=== PATIENT | male | born 1935 | race Caucasian/White ===

== ENCOUNTER → 2017-01-09 | Day surgery (SDC) | payer MEDICARE, BC ==
--- NOTE | 2017-01-08 19:36 | MH ---
cc: SUMI SAEZ DMD DATE OF ADMISSION 01/09/2017 HISTORY OF THE PRESENT ILLNESS Mr. 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 It went all the way down to the floor of the vestibule on the right side. The procedure was done on February 06, 2016 here at [facility]. All the margins were clear as per the report and as per the frozen and the permanent main specimens. The patient presented to my office on recurrent followup subsequently and last month indicated he had a little soreness on the right side. He did have some sharp teeth on the right side which was smoothed down by his dentist but this lesion never went away. The lesion is 1 cm x 0.5 cm. 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 Did discuss with his pathologist Dr. Askew at [facility] who advises removal of the whole lesion in its entirety. Given the patient's previous multiple histories of carcinoma including one on his back melanoma which was there, and his oral cancer, it is necessary that we go and remove this lesion right lateral border of the tongue squamous cell carcinoma with frozens. This is a T1 N0 M0 squamous cell carcinoma recurrence right lateral border of the tongue. So previously invasive. The patient was cleared by his physician, Dr. Joyce at the [facility]. Benefits, risks, indications of the procedure, the procedure in detail and the options of no treatment including alternans were discussed with this patient. Risks not limited to any postop pain, infection, bleeding, damage to the adjacent soft tissue, hard tissue, anesthesia complications. All questions and concerns were addressed. The patient aware that any further recurrence may require more surgery. PAST MEDICAL HISTORY 1. Anaphylactic shock, reason unknown. 2. Sleep apnea. 3. Asthma. 4. Coronary artery disease of [place] coronaries. 5. Chronic obstructive pulmonary disease. 6. Bilateral hearing loss. 7. Pacemaker, which is Medtronic. 8. Hypothyroidism. 9. Type 2 diabetes mellitus. 10. History of syncope. 11. Ventricular tachycardia, paroxysmal. 12. He has a history of blockage of the left part of his heart. PAST SURGICAL HISTORY 1. Tracheostomy April 29, 2014. 2. Melanoma removed from the left shoulder 2013. 3. Pacemaker 2008. 4. Biopsy of the right lower lip 2012 and 2016. 5. Biopsy of the right tongue 2016. 6. Fast excision of that lesion and reconstruction on the right tongue 2016. That was squamous cell carcinoma. Previous anesthesia problems denied. Growth and development normal. Infectious disease denied. Autoimmune disorders denied. ALLERGIES FLOMAX. MEDICATIONS 1. [place] Thyroid 60 milligrams. 2. Aspirin 81 milligrams, delayed release . 3. Atorvastatin 10 milligrams. 4. Metoprolol tartrate 25 milligrams. 5. Nitroglycerine 0.4 milligrams sublingual tablet. 6. Rapaflo 8 milligrams oral capsule. 7. Centrum Silver. 8. Vitamin B12. 9. Glucophage 1000 milligrams oral tablet. 10. Metformin. FAMILY HISTORY Mother at age 88 secondary to cardiac disorder. Father at age of 82 due to prostate cancer. Occupation, retired. SOCIAL HISTORY Tobacco smoking, quit smoking about one year ago but now he started occasionally. Eating well. Alcohol occasionally. Home status lives with his . Sleeping well. Denies any drug use. REVIEW OF SYSTEMS GENERAL: Weight 238 pounds, height 5 feet 8 inches. Weight tendencies no increase or decreasing. HEAD: Denies any headache, dizziness, any injury or any seizures. EYES: Denies any visual problems, any double vision and tearing or blind spots. Does wear reading glasses. NOSE: Chronic runny nose especially in the morning. Denies any bleeding, obstruction, any discharges. MOUTH: Having some soreness on the right side of the mouth. Denies any bleeding or any dentures. Squamous cell carcinoma right tongue, lateral tongue border. THROAT: Reports some hoarseness secondary to the past tracheostomy April 29, 2014. Unknown cause of swelling of his tongue. Denies any soreness any thyroid disease. He has some hoarseness secondary to the tracheostomy. LYMPH NODE: Denies any local, any glandular enlargement. RESPIRATORY: Denies any TB, shortness of breath, any cough. Denies any asthma. History of COPD. History of sleep apnea and wears a C-PAP. CARDIOVASCULAR: Denies any pericardial pain. Denies any hypo or hypertension. Denies murmurs. Denies any shortness of breath on excertion. Denies edema. Denies any phlebitis. Denies rheumatic fever. He has got a pacemaker history, the blockage of the low part of the heart. Pacemaker placed in 2008. GASTROINTESTINAL: Denies any gallbladder, any irritable bowel syndrome, any peptic ulcer disease. GENITOURINARY: Denies any urinary tract infection, any kidney disease, any renal disease. MUSCULOSKELETAL: He has some pain on the left side secondary to torn rotator cuff. Denies any limitation of movement, any muscular weakness. ENDOCRINE: History of diabetes mellitus. Has type 2 diabetes mellitus, takes metformin. Denies any hormone therapy, any growth disturbance. HEMATOLOGIC: Denies any anemia, bleeding tendencies or any Rh incompatibility. NEUROLOGICAL: Denies any motor or any sensory disturbances. PHYSICAL EXAMINATION VITAL SIGNS: Pulse is 61, blood pressure is 113/89, oxygen saturation 96%. . GENERAL: He is alert, awake and oriented x3, well-groomed male in no acute distress. HEENT: Head is normocephalic. History of wearing hearing aids. EYES: Pupils equal round react to light and accommodation. Extraocular motion intact. Nose is symmetrical. Airway is patent. MOUTH: Lesion is noted on the right lateral border of the tongue, has erythema sounded by a whitish area. It was diagnosed at superficially invasive squamous cell carcinoma a few weeks ago. It is T1 N0 M0 lesion. There is no elevation of the floor of the mouth or the tongue. Tissues are pink and well-perfused. NECK: Positive range of movement. CARDIOVASCULAR: Regular rate and rhythm. ABDOMEN: Nontender, nondistended, soft. GASTROINTESTINAL: Positive bowel sounds. EXTREMITIES: Positive range of movement upper and lower extremities. NEUROLOGICAL: Cranial nerves II through XII grossly intact. IMPRESSION AND PLAN An 81-year-old male with T1 N0 M0 squamous cell carcinoma superficially invasive right lateral border of the tongue measuring 1.0 cm x 0.5 cm. It is reddish area with a little white areas around it. We will plan for excision of this whole lesion with frozen specimens and local advancement closure. Benefits, risks, indications of the procedure in detail and the options no treatment were all discussed with this patient already. All questions and concerns were addressed. Sumi Saez DMD RRT/AMIE /5:49 PM /6:52 PM [email or web address]
[~2017-01-09] VITALS: Ht 172.7 cm; Wt 108.4 kg
[~2017-01-09] MED LIST: ACETAMINOPHEN 1000 MG/100 ML VIAL IV ONE; ARMO60TA PO; ASPI1TAB69 PO; ATOR10TA15 PO; BUPIVACAINE/EPINEPHRINE 0.25% PF 30 ML VIAL ONE; CENTTAB PO; CHLORHEXIDINE GLUCONATE 0.12% 30 ML CUP ONE; CYAN1TAB24 PO; DEXAMETHASONE SOD PHOS 20 MG/5 ML VIAL ONE; INSULIN HUMAN REGULAR 1,000 UNITS/10 ML VIAL SQ PRN; ISOS30TA3 PO; LACTATED RINGER'S 1000 ML IV SCH; LIDOCAINE 1%/EPINEPHrine 1:100,000 SOLN 30 ML VIAL ONE; METF1000 PO; METO25TA3 PO; METOPROLOL TARTRATE 25 MG TAB PO PRN; MIDAZOLAM HCL 2 MG/2 ML VIAL ONE; NEOSTIGMINE 3 MG/3 ML SYR IV ONE; NITR1SUB3 SL; ONDANSETRON HCL 4 MG/2 ML VIAL IV PUSH ONE; PHENYLEPH/NS 1000 MCG/10 ML SYR IV ONE; PROPOFOL 200 MG/20 ML AMP IV ONE; RAPA8CAP PO; SODIUM CHLORID 0.9% 500 ML IV SCH; VITA10007 PO; VITA20003 PO; ceFAZolin 1,000 MG/NS 100 ML IV SCH; fentaNYL CITRATE 250 MCG/5 ML AMP ONE; methylPREDNISolone SOD SUCC 125 MG/2 ML VIAL ONE
[2017-01-09 12:24] VITALS: BP 123/69; PULSE 61; RESP 18; TEMP 98.2; O2SAT 96
[2017-01-09 12:28] LABS: AUTOMATED NEUTROPHIL # 5.8 TH/MM3 (1.8-7.7); BASOPHIL # 0.1 TH/MM3 (0-0.2); BASOPHIL % 0.7 % (0.0-2.0); EOSINOPHIL # 0.1 TH/MM3 (0-0.4); EOSINOPHIL % 1.4 % (0.0-4.0); HEMO FLAGS DIFF FINAL; LYMPH % 29.1 % (9.0-44.0); LYMPHOCYTE # 2.8 TH/MM3 (1.0-4.8); MEAN CELL VOLUME 93.7 FL (80.0-100.0); MEAN CORPUSCULAR HEMOGLOBIN 31.7 PG (27.0-34.0); MEAN CORPUSCULAR HGB CONC 33.8 % (32.0-36.0); MONO % 9.4 % (0.0-8.0); NEUT % 59.4 % (16.0-70.0); PLATELET COUNT 157 TH/MM3 (150-450); RED BLOOD COUNT 4.92 MIL/MM3 (4.50-5.90); RED CELL DISTRIBUTION WIDTH 14.6 % (11.6-17.2); WHITE BLOOD COUNT 9.8 TH/MM3 (4.0-11.0)
--- NOTE | 2017-01-09 13:11 | RADRPT ---
EXAM DATE/TIME: 01/09/2017 12:29 [facility] COMPARISON: CHEST SINGLE AP, November 14, 2014, 3:22. INDICATIONS : Evaluate for pneumonia, pneumothorax, or communicable disease. Pre op for lip surgery. MEDICAL HISTORY : Chronic obstructive pulmonary disease. SURGICAL HISTORY : None. ENCOUNTER: Initial ACUITY: 1 day PAIN SCORE: 0/10 LOCATION: Bilateral chest FINDINGS: 2 portable frontal views of the chest show the lungs to be clear. Heart is normal in size. Pacing dev ice overlies the left chest. Bony structures are unremarkable. CONCLUSION: No acute disease. Bronson Simpson Jr., MD on January 09, 2017 at 13:10 Board Certified Radiologist. This report was verified electronically.
--- NOTE | 2017-01-09 15:00 | HHI.PR ---
Immediate Post Op Note Procedure Date: Jan 09, 2017 Pre Op Diagnosis: superficially invasive squamous cell carcinoma right lateral tongue [id number] Post Op Diagnosis: alondra Surgeon: Rolando Serrano Wheel Assembler(s): orly yanez Procedure: excision of scca right lateral tongue with local advancement reconstruction Complications: none Specimen(s) removed: permanent specimen/lesion right lateral tongue frozen sections x 5 Estimated blood loss: minimal Anesthesia: General, Local (2%lidocaine with 1:100,000 epi x 6 cc; 0.5marcaine with 1:200,000 epi x 3 cc) Drains: None Patient to: PACU Patient Condition: Good Date/Time of Procedure: SEE SURGICAL CARE RECORD Rolando Serrano DMD Jan 09, 2017 15:00
[2017-01-09 16:56] VITALS: BP 142/75; PULSE 71; RESP 20; TEMP 96.3; O2SAT 100
--- NOTE | 2017-01-10 12:58 | EKG ---
Date Performed: 01/09/2017 Time Performed: 12:27:40 PTAGE: 81 years EKG: ELECTRONIC ATRIAL PACEMAKER ELECTRONIC VENTRICULAR PACEMAKER ABNORMAL RHYTHM ECG PREVIOUS TRACING : 02/06/2016 13.07 Since previous tracing, no significant change noted DOCTOR: Adi Rodríguez Interpretating Date/Time 01/10/2017 12:56:05
--- NOTE | 2017-01-10 13:33 | MP ---
cc: ROLANDO SERRANO DMD DATE OF SURGERY: 01/09/2017 PREOPERATIVE DIAGNOSIS: Superficially invasive squamous cell carcinoma right lateral tongue, T1 N0 M0 lesion. POSTOPERATIVE DIAGNOSIS: Superficially invasive squamous cell carcinoma right lateral tongue, T1 N0 M0 lesion. OPERATIVE PROCEDURE PERFORMED: Excision of squamous cell carcinoma right lateral tongue with local advancement reconstruction. SURGEON: Rolando Serrano DMD. CYCLE COUNTER: [place]. ANESTHESIA: General also 2% lidocaine with 1:1000 epinephrine approximately 6 mL also 0.5% Marcaine with 1:200,000 epinephrine approximately 3 mL given at the end of the case. COMPLICATIONS: None. SPECIMENS: Permanent specimen /lesion of the right lateral tongue also frozen sections x5. ESTIMATED BLOOD LOSS: Minimal. DISPOSITION: The patient tolerated the procedure well and was extubated and taken to the post-anesthesia care unit. INDICATIONS FOR THE PROCEDURE: This is an 81-year-old male with a longstanding history of multiple areas of lesions including squamous cell carcinoma of his lip and tongue. Upon continuous follow up visits, the patient indication about a month ago that he had a soreness on the right lateral border of the tongue. I did an incisional biopsy which came back as superficially invasive squamous cell carcinoma. It is now necessary that we excise this lesion its this entirety with frozen sections and do an advancement reconstruction to close the defect. The pathologist also advised to resect the rest of this remaining lesion. He was medically cleared for the procedure. EKGs and chest x-rays were all taken prior to the procedure including labs and all were reviewed perioperatively. Benefits, risks and indication of the procedure, the procedure in detail and the options of no treatment were all discussed with this patient. The risks are not limited to any postop pain, infection, bleeding, damage to adjacent soft tissue, hard tissue anesthesia complications, recurrence of the lesion, further surgeries as required. All questions and concerns were addressed. Consent was signed and is in the chart. DESCRIPTION OF THE PROCEDURE IN DETAIL: The patient was met once again perioperatively. Past medical history review was reviewed and updated and no changes noted. At this time, the right side of the face was now marked. The patient was taken to operating suite #10 and put on the table in the supine position. He underwent oral intubation with a glide scope. The eyes were taped shut and all pressure points were padded. Betadine prep was done of his mouth and his lips. At this time, a time-out was taken to identify the patient, the site, the procedure, the surgeon and all were in agreement. I went to sink to scrub and came back to wear the sterile attire. The patient was draped in normal sterile fashion. The bite block was gently placed on the left side of the mouth. The back of the throat was suctioned. A moistened Ray-Chandni used as a throat pack. The mouth was irrigated with Peridex solution. 2% lidocaine with 1:100,000 epinephrine injected gently on the anterior tip. 2-0 silk suture was used to pull the tongue out of the mouth. The lesion was identified on the right lateral border of the tongue. I used a marking pen to mirna all around the tongue on the right side. Once this was done, a 2% lidocaine with 1:100,000 epinephrine was injected over the right side lateral tongue where the lesion was. A 15 blade was used to excise this lesion in an elliptical manner. Then once the lesion was taken out, it was marked with 2-0 silk suture at twelve o'clock with two long sutures, three o'clock a short suture, six o'clock one long suture and the nine o'clock position had no suture. Frozen sections were now taken superiorly going from the posterior to the anterior region with the same thing on the inferior region and three deep specimens were taken: Deep anterior, deep middle and deep posterior. I just spoke to the pathologist and all margins for frozen sections were all clear of any lesion. Once this was done, the site was once again irrigated with Peridex solution. Bipolar was used to cauterize any bleeders. 3-0 Vicryl was used to close the deep layers with undermining of the tissues on all the borders of the soft tissue to help advance this closure. Finally on the outside, the lateral border of the tongue was closed with 3-0 Vicryl sutures in a horizontal mattress. 0.5% Marcaine with 1:200,000 epinephrine was injected in the right lateral border the tongue. Prior to that, Marcaine was also injected in the right side inferior alveolar nerve block. The silk suture was removed. The back of the mouth was suctioned. The throat pack was removed. The bite block was removed. The patient tolerated the procedure well. No complications noted. All sponge and needle counts were all accounted for. Rolando Serrano DMD RRT/MARC /2:50 PM /1:20 PM LAEH
== END | disposition home or self-care (01) ==
LOC: HSDC 10:58
PROVIDERS: ATTEND Dentist Oral and Maxillofacial Surgery
DX: C02.1 Malignant neoplasm of border of tongue (principal); J44.9 Chronic obstructive pulmonary disease, unspecified; R94.31 Abnormal electrocardiogram [ECG] [EKG]
CPT/HCPCS: 00170; 41120; 71010; 85025; 88305; 88331; 93005; J0690; J2250; J2370; J2405; J2710; J2930; J3010; J7120; J0131; J1100

== ENCOUNTER 2017-01-30 13:52 | Inpatient (IN) | payer MEDICARE, BC ==
[~2017-01-30] VITALS: Ht 172.7 cm; Wt 80.0 kg
[~2017-01-30 13:52] MED LIST changes: -ACETAMINOPHEN 1000 MG/100 ML VIAL IV ONE; -BUPIVACAINE/EPINEPHRINE 0.25% PF 30 ML VIAL ONE; -CHLORHEXIDINE GLUCONATE 0.12% 30 ML CUP ONE; -DEXAMETHASONE SOD PHOS 20 MG/5 ML VIAL ONE; -INSULIN HUMAN REGULAR 1,000 UNITS/10 ML VIAL SQ PRN; -ISOS30TA3 PO; -LACTATED RINGER'S 1000 ML IV SCH; -LIDOCAINE 1%/EPINEPHrine 1:100,000 SOLN 30 ML VIAL ONE; -METOPROLOL TARTRATE 25 MG TAB PO PRN; -MIDAZOLAM HCL 2 MG/2 ML VIAL ONE; -NEOSTIGMINE 3 MG/3 ML SYR IV ONE; -ONDANSETRON HCL 4 MG/2 ML VIAL IV PUSH ONE; -PHENYLEPH/NS 1000 MCG/10 ML SYR IV ONE; -PROPOFOL 200 MG/20 ML AMP IV ONE; -SODIUM CHLORID 0.9% 500 ML IV SCH; -ceFAZolin 1,000 MG/NS 100 ML IV SCH; -fentaNYL CITRATE 250 MCG/5 ML AMP ONE; -methylPREDNISolone SOD SUCC 125 MG/2 ML VIAL ONE
[2017-01-30 14:03] VITALS: BP 146/68; PULSE 88; RESP 17; TEMP 98.1; O2SAT 98
[2017-01-30 16:11] VITALS: O2SAT 95
--- NOTE | 2017-01-30 16:22 | PD ---
HPI Chief Complaint: Chest Pain Time Seen by Provider: 16:22 Travel History International Travel<30 days: No Contact w/Intl Traveler<30days: No Traveled to known affect area: No History of Present Illness HPI 81-year-old male came to the emergency room with history of left-sided chest pain radiating to his shoulder this morning that lasted for 4-5 hours. Patient says that he had the same kind of pain on and off past few times. About 4 weeks ago he had seen his talent program manager Dr. Joyce who had done a stress test and had let the patient know that he has blockages. Patient was discharged home on nitroglycerin. Patient however was not comfortable taking the nitroglycerin today with the pain. He decided to come to the emergency room. However his blood pressure was 105/60 which is low for him. Currently he is chest pain-free. His vital signs are stable. He has noticed that drinking coffee makes the pain get worse. PFSH Past Medical History Narrative Medical List of his past medical, surgical, social and family history is reviewed from the nursing note. Asthma: Yes Anxiety: No Depression: No Heart Rhythm Problems: Yes Cancer: Yes (TONGUE) Cardiovascular Problems: Yes (PACEMAKER [employer]ICS) High Cholesterol: No Chemotherapy: No Chest Pain: No Congestive Heart Failure: No COPD: Yes Diabetes: Yes Patient Takes Glucophage: Yes Endocrine: No Genitourinary: No Hepatitis: No Hiatal Hernia: No Immune Disorder: No Implanted Vascular Access Dvce: Yes Musculoskeletal: No Neurologic: No Psychiatric: No Reproductive: No Respiratory: Yes Radiation Therapy: No Sleep Apnea: Yes Thyroid Disease: Yes Past Surgical History AICD: No Arteriovenous Shunt: No Cardiac Surgery: Yes (PACEMAKER 09) Insulin Pump: No Joint Replacement: No Oral Surgery: Yes ([place] TONGUE REM.,) Pacemaker: Yes (MEDTRONIC) Other Surgery: Yes Social History Alcohol Use: Yes (OCCASIONALLY) Tobacco Use: Yes (5 CIGS DAY) Substance Use: No Allergies-Medications (Allergen,Severity, Reaction): Coded Allergies: Tamsulosin (Verified Allergy, Severe, Edema, 01/30/17) Angioedema requiring intubation x 2 Comments List of his allergies reviewed from the nursing note. Reported Meds & Prescriptions Reported Meds & Active Scripts Active Reported Nitroglycerin SL (Nitroglycerin) 0.4 Mg Subl 0.4 Mg SL DIRECTED PRN ONE TABLET UNDER THE TONGUE NEEDED FOR CHEST PAIN, MAY REPEAT EVERY FIVE MINUTES FOR A TOTAL OF 3 DOSES OR CALL 911 IF NO RELIEF Centrum Silver (Multiple Vitamins W/ Minerals) 1 Tab 1 Tab PO DAILY B12 (Cyanocobalamin) 1,000 Mcg Tab 1 Tab PO DAILY Atorvastatin (Atorvastatin Calcium) 10 Mg Tab 10 Mg PO DAILY [place] Thyroid (Thyroid) 60 Mg Tab 60 Mg PO DAILY Metoprolol Tartrate 25 Mg Tab 25 Mg PO DAILY Vitamin D (Cholecalciferol) 2,000 Unit Tab 1 Tab PO DAILY Vitamin C (Ascorbic Acid) 1,000 Mg Tab 1,000 Mg PO Aspirin 81 Mg Tabdr 81 Mg PO DAILY Metformin (Metformin HCl) 1,000 Mg Tab 1,000 Mg PO BIDPC With meals Rapaflo (Silodosin) 8 Mg Cap 8 Mg PO DAILY Narrative Medication List of his home medications reviewed from the nursing note. Review of Systems Except as stated in HPI: all other systems reviewed are Neg Physical Exam Narrative GENERAL: Awake, alert, obese, elderly, no obvious distress SKIN: Warm and dry. HEAD: Atraumatic. Normocephalic. EYES: Pupils equal and round. No scleral icterus. No injection or drainage. ENT: No nasal bleeding or discharge. Mucous membranes pink and moist. NECK: Trachea midline. No JVD. CARDIOVASCULAR: Regular rate and rhythm. No murmur appreciated. RESPIRATORY: No accessory muscle use. Clear to auscultation. Breath sounds equal bilaterally. GASTROINTESTINAL: Abdomen soft, non-tender, nondistended. Hepatic and splenic margins not palpable. MUSCULOSKELETAL: No obvious deformities. No clubbing. No cyanosis. No edema. NEUROLOGICAL: Awake and alert. No obvious cranial nerve deficits. Motor grossly within normal limits. Normal speech. PSYCHIATRIC: Appropriate mood and affect; insight and judgment normal. Data Data Last Documented VS Vital Signs Date Time Temp Pulse Resp B/P Pulse Ox O2 Delivery O2 Flow Rate FiO2 01/30/17 18:29 60 21 186/106 94 Room Air 01/30/17 14:03 98.1 Orders Electrocardiogram (01/30/17 ) Basic Metabolic Panel (Bmp) (01/30/17 16:30) Ckmb (Isoenzyme) Profile (01/30/17 16:30) Complete Blood Count With Diff (01/30/17 16:30) Magnesium (Mg) (01/30/17 16:30) Prothrombin Time / Inr (Pt) (01/30/17 16:30) Act Partial Throm Time (Ptt) (01/30/17 16:30) Troponin I (01/30/17 16:30) Chest, Single Ap (01/30/17 16:30) Ecg Monitoring (01/30/17 16:30) Bilateral Bp Monitoring (01/30/17 16:30) Iv Access Insert/Monitor (01/30/17 16:30) Oximetry (01/30/17 16:30) Oxygen Administration (01/30/17 16:30) Sodium Chloride 0.9% Flush (Ns Flush) (01/30/17 16:30) Aspirin Chew (Aspirin Chew) (01/30/17 17:00) CKMB (01/30/17 16:35) CKMB% (01/30/17 16:35) Admit Order (Ed Use Only) (01/30/17 18:29) Labs Laboratory Tests Test 01/30/17 16:35 White Blood Count 7.7 TH/MM3 Red Blood Count 4.72 MIL/MM3 Hemoglobin 15.2 GM/DL Hematocrit 44.3 % Mean Corpuscular Volume 93.9 FL Mean Corpuscular Hemoglobin 32.1 PG Mean Corpuscular Hemoglobin 34.2 % Concent Red Cell Distribution Width 14.6 % Platelet Count 161 TH/MM3 Mean Platelet Volume 8.4 FL Neutrophils (%) (Auto) 45.4 % Lymphocytes (%) (Auto) 39.7 % Monocytes (%) (Auto) 12.2 % Eosinophils (%) (Auto) 2.2 % Basophils (%) (Auto) 0.5 % Neutrophils # (Auto) 3.5 TH/MM3 Lymphocytes # (Auto) 3.1 TH/MM3 Monocytes # (Auto) 0.9 TH/MM3 Eosinophils # (Auto) 0.2 TH/MM3 Basophils # (Auto) 0.0 TH/MM3 CBC Comment DIFF FINAL Differential Comment Prothrombin Time 11.2 SEC Prothromb Time International 1.0 RATIO Ratio Activated Partial 26.3 SEC Thromboplast Time Sodium Level 141 MEQ/L Potassium Level 4.5 MEQ/L Chloride Level 105 MEQ/L Carbon Dioxide Level 28.2 MEQ/L Anion Gap 8 MEQ/L Blood Urea Nitrogen 15 MG/DL Creatinine 0.84 MG/DL Estimat Glomerular Filtration 88 ML/MIN Rate Random Glucose 94 MG/DL Calcium Level 9.3 MG/DL Magnesium Level 2.1 MG/DL Total Creatine Kinase 120 U/L Creatine Kinase MB 2.6 NG/ML Troponin I LESS THAN 0.02 NG/ML Free Thyroxine 0.83 NG/DL Thyroid Stimulating Hormone 1.980 uIU/ML [address] [place] [address] Medical Decision Making Medical Screen Exam Complete: Yes Emergency Medical Condition: Yes Medical Record Reviewed: Yes Differential Diagnosis ACS, non-STEMI, angina Narrative Course 6:28 PM blood test results are back and within normal limits. Given the fact that patient's chest pain sounds atypical for unstable angina and that he has had a possible stress test done with his talent program manager IV recommended his primary care to admit him medically. His primary care Dr. Flores agreed. We will consult Dr. Joyce to see this patient tomorrow. Procedures EKG Prior to Arrival: No Diagnosis Primary Impression: Unstable angina Admitting Information Admitting Physician Requests: Observation Scripts Isosorbide Mononitrate ER 30 Mg Taber30 Mg PO DAILY #30 TAB Ref 0 - Sample # 30 Prov:Basim Cao DO 02/01/17 Margareth Holden MD Jan 30, 2017 16:22
[2017-01-30 16:30] VITALS: BP 128/68; PULSE 60; RESP 21; O2SAT 94
[2017-01-30] MEDS ORDERED: SODIUM CHLORIDE 0.9% FLUSH 5 ML FLUSH IVF PRN (16:30)
[2017-01-30] MEDS ORDERED: ASPIRIN 81 MG CHEW TAB CHEW ONE (17:00)
[2017-01-30 17:34] LABS: AUTOMATED NEUTROPHIL # 3.5 TH/MM3 (1.8-7.7); BASOPHIL % 0.5 % (0.0-2.0); EOSINOPHIL # 0.2 TH/MM3 (0-0.4); EOSINOPHIL % 2.2 % (0.0-4.0); HEMATOCRIT 44.3 % (39.0-51.0); HEMO FLAGS DIFF FINAL; LYMPH % 39.7 % (9.0-44.0); LYMPHOCYTE # 3.1 TH/MM3 (1.0-4.8); MEAN CELL VOLUME 93.9 FL (80.0-100.0); MEAN CORPUSCULAR HEMOGLOBIN 32.1 PG (27.0-34.0); MEAN CORPUSCULAR HGB CONC 34.2 % (32.0-36.0); MONO % 12.2 % (0.0-8.0); NEUT % 45.4 % (16.0-70.0); PLATELET COUNT 161 TH/MM3 (150-450); RED BLOOD COUNT 4.72 MIL/MM3 (4.50-5.90); RED CELL DISTRIBUTION WIDTH 14.6 % (11.6-17.2); WHITE BLOOD COUNT 7.7 TH/MM3 (4.0-11.0)
--- NOTE | 2017-01-30 17:34 | RADRPT ---
EXAM DATE/TIME: 01/30/2017 16:35 [facility] COMPARISON: CHEST SINGLE AP, January 09, 2017, 12:29. INDICATIONS : Chest pain. MEDICAL HISTORY : None. SURGICAL HISTORY : Pacemaker. ENCOUNTER: Initial ACUITY: 1 day PAIN SCORE: 0/10 LOCATION: Left Chest FINDINGS: A single view of the chest demonstrates the lungs to be symmetrically aerated without evidence of mas s, infiltrate or effusion. The cardiomediastinal contours are unremarkable. Osseous structures are intact. CONCLUSION: 1. No active disease. Pacer leads overlying right atrium and right ventricle. Addi Warren MD on January 30, 2017 at 17:32 Board Certified Radiologist. This report was verified electronically.
[2017-01-30 17:43] LABS: APTT (PATIENT) 26.3 SEC (24.3-30.1); PROTHROMBIN TIME - PATIENT 11.2 SEC (9.8-11.6)
[2017-01-30 17:59] LABS: ANION GAP 8 MEQ/L (5-15); BICARBONATE 28.2 MEQ/L (21.0-32.0); BLOOD UREA NITROGEN 15 MG/DL (7-18); CHLORIDE 105 MEQ/L (98-107); GLOMERULAR FILTRATION RATE 88 ML/MIN (>89); MAGNESIUM 2.1 MG/DL (1.5-2.5); POTASSIUM 4.5 MEQ/L (3.5-5.1); SODIUM (NA) 141 MEQ/L (136-145)
[2017-01-30 18:02] LABS: CREATINE KINASE 120 U/L (39-308)
[2017-01-30 18:14] LABS: CKMB 2.6 NG/ML (0.5-3.6)
[2017-01-30 18:29] VITALS: BP 186/106; PULSE 60; RESP 21; O2SAT 94
[2017-01-30] MEDS ORDERED: SODIUM CHLORIDE 0.9% FLUSH 5 ML FLUSH FLUSH PRN (19:45)
[2017-01-30] MEDS ORDERED: NALOXONE HCL 0.4 MG/ML AMP IV PRN (19:45)
[2017-01-30] MEDS ORDERED: NITROGLYCERIN 0.4 MG SL 25 TABS/BTL SL PRN (20:00)
[2017-01-30 20:34] LABS: FREE T4 0.83 NG/DL (0.76-1.46)
[2017-01-30] MEDS: SODIUM CHLORIDE 0.9% FLUSH 5 ML FLUSH FLUSH SCH (21:10)
[2017-01-31] VITALS (9 sets, daily range): BP systolic 116–156; BP diastolic 60–77; PULSE 60–86; RESP 18–22; TEMP 95.8–97.6; O2SAT 94–98
[2017-01-31 07:44] LABS: AUTOMATED NEUTROPHIL # 4.7 TH/MM3 (1.8-7.7); BASOPHIL % 0.5 % (0.0-2.0); EOSINOPHIL # 0.2 TH/MM3 (0-0.4); EOSINOPHIL % 2.2 % (0.0-4.0); HEMATOCRIT 42.5 % (39.0-51.0); HEMO FLAGS DIFF FINAL; LYMPH % 31.8 % (9.0-44.0); LYMPHOCYTE # 2.7 TH/MM3 (1.0-4.8); MEAN CELL VOLUME 93.7 FL (80.0-100.0); MEAN CORPUSCULAR HGB CONC 34.2 % (32.0-36.0); MONO % 9.8 % (0.0-8.0); NEUT % 55.7 % (16.0-70.0); PLATELET COUNT 147 TH/MM3 (150-450); RED BLOOD COUNT 4.53 MIL/MM3 (4.50-5.90); RED CELL DISTRIBUTION WIDTH 14.6 % (11.6-17.2); WHITE BLOOD COUNT 8.5 TH/MM3 (4.0-11.0)
[2017-01-31 08:17] LABS: ALKALINE PHOSPHATASE 56 U/L (45-117); ALT (GPT) 28 U/L (12-78); ANION GAP 9 MEQ/L (5-15); AST (GOT) 20 U/L (15-37); BICARBONATE 25.3 MEQ/L (21.0-32.0); BLOOD UREA NITROGEN 14 MG/DL (7-18); CHLORIDE 107 MEQ/L (98-107); GLOMERULAR FILTRATION RATE 84 ML/MIN (>89); POTASSIUM 4.3 MEQ/L (3.5-5.1); SODIUM (NA) 141 MEQ/L (136-145); TOTAL BILIRUBIN ADULT 0.5 MG/DL (0.2-1.0)
[2017-01-31] MEDS ORDERED: NON-FORMULARY DRUG (Cyanocobalamin (B12) 1 TAB) PO SCH (09:00)
[2017-01-31] MEDS ORDERED: SILODOSIN 8 MG PO SCH (09:00)
[2017-01-31] MEDS ORDERED: NON-FORMULARY DRUG (Cholecalciferol (Vitamin D) 1 TAB) PO SCH (09:00)
[2017-01-31] MEDS ORDERED: NON-FORMULARY DRUG (Silodosin (Rapaflo) 8 MG) PO SCH (09:00)
[2017-01-31] MEDS: THYROID 60 MG TAB PO SCH (09:37)
[2017-01-31] MEDS: ATORVASTATIN 10 MG TAB PO SCH (09:37)
[2017-01-31] MEDS: ASPIRIN EC 81 MG TABEC PO SCH (09:37)
[2017-01-31] MEDS: METOPROLOL TARTRATE 25 MG TAB PO SCH (09:37)
[2017-01-31] MEDS: MULTIVITAMIN HEMATINIC THERAPEUTIC TAB PO SCH (09:37)
[2017-01-31] MEDS: metFORMIN HCL 500 MG TAB PO SCH ×2 (09:37→18:36)
[2017-01-31] MEDS: SODIUM CHLORIDE 0.9% FLUSH 5 ML FLUSH FLUSH SCH ×2 (09:39→20:27)
--- NOTE | 2017-01-31 16:04 | HHI.HP ---
History of Present Illness Service Attending, PCP Primary Care Physician Basim Cao DO Admission Diagnosis unstable angina Diagnoses: (1) Unstable angina Diagnosis: Principal (2) Previous pacemake placement Diagnosis: Secondary (3) Diabetes mellitus (4) Obstructive sleep apnea Diagnosis: Secondary History of Present Illness This very pleasant 81 year old male patient of Dr. Cao's was advised to the ED d/t left sided chest pain. He sees Dr. Rubio Joyce for cardiology and underwent a nuclear stress test about 1 month ago which he states "showed blockages". Dr. Joyce has been consulted for evaluation and management. He describes his chest pain as intermittent, not associated with activity or food intake consistently, sometimes occurring at rest, less frequently with activity. He describes an aching sensation in his left pectoral area with no point tenderness, no tenderness to palpation. He does have a left chest wall pacemaker, implanted by Dr. Joyce some time ago, appearing completely healed. He also describes a history of left rotator cuff repair with continued left shoulder pain. He denies SOB, nausea, diaphoresis, syncope or near syncope. His serial troponin has been negative and currently has no chest pain. Review of Systems Cardiovascular: COMPLAINS OF: Chest pain Past Family Social History Allergies: Coded Allergies: Tamsulosin (Verified Allergy, Severe, Edema, 01/30/17) Angioedema requiring intubation x 2 Past Medical History Pacemaker Sleep Apnea on CPAP Diabetes Unstable angina Hypothyroidism COPD Vitamin B12 Deficiency Past Surgical History Pacemaker placement Tracheostomy 04/29/14 Melanoma removal from L shoulder 2014 Biopsy of Lower lip in 2012, , and tongue 2016 Reported Medications Reported Meds & Active Scripts Active Reported Nitroglycerin SL (Nitroglycerin) 0.4 Mg Subl 0.4 Mg SL DIRECTED PRN ONE TABLET UNDER THE TONGUE NEEDED FOR CHEST PAIN, MAY REPEAT EVERY FIVE MINUTES FOR A TOTAL OF 3 DOSES OR CALL 911 IF NO RELIEF Centrum Silver (Multiple Vitamins W/ Minerals) 1 Tab 1 Tab PO DAILY B12 (Cyanocobalamin) 1,000 Mcg Tab 1 Tab PO DAILY Atorvastatin (Atorvastatin Calcium) 10 Mg Tab 10 Mg PO DAILY [place] Thyroid (Thyroid) 60 Mg Tab 60 Mg PO DAILY Metoprolol Tartrate 25 Mg Tab 25 Mg PO DAILY Vitamin D (Cholecalciferol) 2,000 Unit Tab 1 Tab PO DAILY Vitamin C (Ascorbic Acid) 1,000 Mg Tab 1,000 Mg PO Aspirin 81 Mg Tabdr 81 Mg PO DAILY Metformin (Metformin HCl) 1,000 Mg Tab 1,000 Mg PO BIDPC With meals Rapaflo (Silodosin) 8 Mg Cap 8 Mg PO DAILY Active Ordered Medications Current Medications Medications (Trade) Dose Ordered Sig/Hayden Route Start Time Stop Time Status Last Admin (NS Flush) 2 ml UNSCH PRN FLUSH 01/30/17 19:45 (NS Flush) 2 ml BID FLUSH 01/30/17 21:00 01/31/17 09:39 (Narcan Inj) 0.4 mg UNSCH PRN IV 01/30/17 19:45 (Ecotrin Ec) 81 mg DAILY PO 01/31/17 09:00 01/31/17 09:37 (Lipitor) 10 mg DAILY PO 01/31/17 09:00 01/31/17 09:37 (Glucophage) 1,000 mg BIDPC PO 01/31/17 09:00 01/31/17 09:37 (Lopressor) 25 mg DAILY PO 01/31/17 09:00 01/31/17 09:37 (Theragran Hematinic) 1 tab DAILY PO 01/31/17 09:00 01/31/17 09:37 (Nitrostat Sl) 0.4 mg STAT PRN SL 01/30/17 20:00 ([place] Thyroid) 60 mg DAILY PO 01/31/17 09:00 01/31/17 09:37 Patient Own Medication PT OWN MED: RAPAFL... DAILY PO 01/31/17 09:00 Hold Family History Mother at 88 of cardiac disease, father at 80 of prostate cancer. Social History History of smoking which he cannot quantify, regular ETOH use, no illicits. Physical Exam Vital Signs Vital Signs Date Time Temp Pulse Resp B/P Pulse Ox O2 Delivery O2 Flow Rate FiO2 01/31/17 12:00 96.0 63 18 124/64 94 01/31/17 10:00 81 01/31/17 08:00 96.3 76 20 129/62 96 01/31/17 04:35 72 01/31/17 04:14 97.6 68 18 122/69 95 01/31/17 02:20 60 18 132/60 98 Room Air 01/30/17 18:29 60 21 186/106 94 Room Air 01/30/17 16:30 60 21 128/68 94 Room Air 01/30/17 16:11 95 Room Air 01/30/17 16:11 95 Room Air 01/30/17 16:11 16 Room Air Physical Exam GENERAL: Well-nourished, well-developed patient. SKIN: Warm and dry. HEAD: Normocephalic. EYES: No scleral icterus. No injection or drainage. NECK: Supple, trachea midline. No JVD or lymphadenopathy. CARDIOVASCULAR: Regular rate and rhythm without murmurs, gallops, or rubs. RESPIRATORY: Breath sounds equal diminished bilaterally. No accessory muscle use. GASTROINTESTINAL: Abdomen soft, non-tender, nondistended. EXTREMITIES: No cyanosis, or edema. NEUROLOGICAL: Awake, alert, and oriented x 3. Non-focal. Laboratory Laboratory Tests Test 01/30/17 01/30/17 01/31/17 01/31/17 16:35 19:40 05:00 06:35 White Blood Count 7.7 8.5 Red Blood Count 4.72 4.53 Hemoglobin 15.2 14.5 Hematocrit 44.3 42.5 Mean Corpuscular Volume 93.9 93.7 Mean Corpuscular Hemoglobin 32.1 32.0 Mean Corpuscular Hemoglobin 34.2 34.2 Concent Red Cell Distribution Width 14.6 14.6 Platelet Count 161 147 Mean Platelet Volume 8.4 8.3 Neutrophils (%) (Auto) 45.4 55.7 Lymphocytes (%) (Auto) 39.7 31.8 Monocytes (%) (Auto) 12.2 9.8 Eosinophils (%) (Auto) 2.2 2.2 Basophils (%) (Auto) 0.5 0.5 Neutrophils # (Auto) 3.5 4.7 Lymphocytes # (Auto) 3.1 2.7 Monocytes # (Auto) 0.9 0.8 Eosinophils # (Auto) 0.2 0.2 Basophils # (Auto) 0.0 0.0 CBC Comment DIFF FINAL DIFF FINAL Differential Comment Prothrombin Time 11.2 Prothromb Time International 1.0 Ratio Activated Partial 26.3 Thromboplast Time Sodium Level 141 141 Potassium Level 4.5 4.3 Chloride Level 105 107 Carbon Dioxide Level 28.2 25.3 Anion Gap 8 9 Blood Urea Nitrogen 15 14 Creatinine 0.84 0.87 Estimat Glomerular Filtration 88 84 Rate Random Glucose 94 114 Calcium Level 9.3 8.8 Magnesium Level 2.1 Total Creatine Kinase 120 Creatine Kinase MB 2.6 Troponin I LESS THAN 0.02 0.02 0.02 Free Thyroxine 0.83 Thyroid Stimulating Hormone 1.980 3rd Gen Total Bilirubin 0.5 Aspartate Amino Transf 20 (AST/SGOT) Alanine Aminotransferase 28 (ALT/SGPT) Alkaline Phosphatase 56 Total Protein 6.3 Albumin 3.1 Total Triiodothyronine 87 Result Diagram: 01/31/17 0635 01/31/17 0635 Imaging Last Impressions Chest X-Ray 01/30/17 1630 Signed Impressions: Service Date/Time: January 16:35 - CONCLUSION: 1. No active disease. Pacer leads overlying right atrium and right ventricle. Addi Warren MD Assessment and Plan Problem List: (1) Chest pain Status: Acute Plan: Negative troponin, recent nuclear stress test by Dr. Joyce, no current chest pain. Dr. Joyce consulted for evaluation. (2) Hypothyroid Status: Chronic Plan: Resume home medications. (3) Diabetes Status: Chronic Plan: Home meds resumed. Diabetic diet, accuchecks, SSI (4) COPD (chronic obstructive pulmonary disease) Status: Chronic Plan: Stable on O2. Assessment and Plan Pending cardiology evaluation. D/W pt., Dr. Cao. Problem Qualifiers (1) Diabetes mellitus: (2) Chest pain: Qualified Code: R07.89 - Other chest pain (3) Hypothyroid: Qualified Code: E03.9 - Acquired hypothyroidism (4) Diabetes: Qualified Code: E11.8 - Type 2 diabetes mellitus with complication, without long-term current use of insulin (5) COPD (chronic obstructive pulmonary disease): Qualified Code: J44.9 - Chronic obstructive pulmonary disease, unspecified COPD type Chantal Loera Jan 31, 2017 16:04
[2017-01-31] MEDS ORDERED: GLUCAGON 1 MG/ML VIAL OTHER PRN (16:15)
[2017-01-31] MEDS ORDERED: DEXTROSE 50% IN WATER 50 ML VIAL(D50) IV PUSH PRN (16:15)
--- NOTE | 2017-01-31 17:57 | MB ---
cc: SARAH RODRÍGUEZ DATE OF CONSULTATION: 01/31/2017. REASON FOR CONSULTATION: Typical chest pain. HISTORY OF PRESENT ILLNESS: 81-year-old male with past medical history significant for coronary artery disease, diabetes, hypertension, hyperlipidemia [employer] pacemaker that presented to the hospital after having experienced the sudden onset of chest discomfort around 4:00 a.m. The patient follows with Dr. Rubio Joyce who has seen the patient recently and performed recent ischemic workups which have been unremarkable. Specifically he has had a recent nuclear stress test that showed a large scar which was unchanged from previous and a normal left ventricular systolic function. The patient reports he has nitroglycerin at home. However, did not feel the need to take it. Currently he denies nausea, vomiting, diarrhea, fevers, chills, abdominal pain, palpitations, syncope, PND, orthopnea , leg edema or noncompliance with medications. REVIEW OF SYSTEMS: Negative except for that mentioned in the history of present illness. PAST MEDICAL HISTORY: 1. Hypertension. 2. Hyperlipidemia. 3. Diabetes. 4. Coronary artery disease. 5. Pacemaker. FAMILY HISTORY: Noncontributory SOCIAL HISTORY: He is a smoker. He has drinks alcohol socially. He denies any illicit drug use. ALLERGIES: Tamsulosin. CARDIAC MEDICATIONS AT HOME: 1. Lipitor 10 milligrams p.o. daily. 2. Metoprolol 25 milligrams p.o. daily. 3. Aspirin 81 milligrams p.o. daily. PHYSICAL EXAMINATION: VITAL SIGNS: Temperature 96, respiratory rate 18, heart rate 63, blood pressure 124/64, 02 saturation 94% in room air. GENERAL: He is awake, alert and oriented times three in no acute distress. HEAD, EYES, EARS, NOSE, THROAT/NECK: The patient has no jugular venous distention. No carotid bruits. HEART: Regular rate and rhythm. There are no murmurs, rubs or gallops. LUNGS: Clear to auscultation bilaterally. ABDOMEN: The abdomen is obese, positive bowel sounds. The abdomen is soft, nontender and nondistended. EXTREMITIES: There is no cyanosis or edema. Pulses throughout. DATA: CBC: Hemoglobin 14, hematocrit of 42. INR 1. Chemistries: Sodium 141, potassium 4.3, BUN 14, creatinine 0.87. Troponin less than 0.02 x3. Chest x-ray: No active cardiopulmonary disease. EKG: EKG shows atrial and ventricular paced rhythm. ASSESSMENT AND PLAN: 81-year-old male who presented with atypical chest pain and negative troponins. EKG unchanged. He remains afebrile and hemodynamically stable and chest pain- free. He has a recent negative stress test showing a scar from a previous heart attack, however, preserved left ventricular systolic function. Currently patient is not on optimal medical management for ischemia. Recommendations. 1. Start a long-acting nitrate Imdur 30 mg PO daily 2. Increase the Metoprolol to 25mg PO BID if BP tolerates. 3. Increase Lipitor to 40mg PO daily If patient remains stable he can be discharge home with follow up with Dr. Joyce as an outpatient. Thank you for the opportunity to take part in the care of this patient. Will be available on a PRN basis for any other questions or concerns. MD MANE Torres/JCC /3:03 PM /5:49 PM LEAH
--- NOTE | 2017-01-31 19:43 | EKG ---
Date Performed: 01/30/2017 Time Performed: 19:51:10 PTAGE: 81 years EKG: ELECTRONIC ATRIAL PACEMAKER ELECTRONIC VENTRICULAR PACEMAKER ABNORMAL RHYTHM ECG PREVIOUS TRACING : 01/30/2017 14.13 Compared to prior tracing no significant change DOCTOR: Nirmal Chawla Interpretating Date/Time 01/31/2017 19:41:22
--- NOTE | 2017-01-31 20:01 | EKG ---
Date Performed: 01/30/2017 Time Performed: 14:13:34 PTAGE: 81 years EKG: ELECTRONIC ATRIAL PACEMAKER ELECTRONIC VENTRICULAR PACEMAKER ABNORMAL RHYTHM ECG PREVIOUS TRACING : 01/09/2017 12.27 Compared to prior tracing no significant change DOCTOR: Nirmal Chawla Interpretating Date/Time 01/31/2017 20:00:11
[2017-02-01 00:20] VITALS: BP 127/74; PULSE 80; RESP 20; TEMP 97.6; O2SAT 98
[2017-02-01 03:33] VITALS: BP 111/53; PULSE 59; RESP 20; TEMP 97.8; O2SAT 97
[2017-02-01] MEDS ORDERED: ISOSORBIDE MONONITRATE 30 MG TAB PO SCH (07:00)
[2017-02-01] MEDS ORDERED: ISOSORBIDE MONONITRATE 60 MG TAB PO SCH (07:00)
[2017-02-01 08:00] VITALS: BP 108/62; PULSE 78; PULSE 87; RESP 18; TEMP 96; O2SAT 93
[2017-02-01] MEDS ORDERED: ISOS30TA3 PO (08:11)
--- NOTE | 2017-02-01 08:15 | HHI.DS ---
Discharge Summary Admission Date Jan 30, 2017 at 19:47 Admitting Diagnosis unstable angina CBC/BMP: 01/31/17 0635 01/31/17 0635 Significant Findings Laboratory Tests Test 01/30/17 01/31/17 16:35 06:35 Monocytes (%) (Auto) 12.2 % 9.8 % (0.0-8.0) (0.0-8.0) Estimat Glomerular Filtration 88 ML/MIN (>89) 84 ML/MIN (>89) Rate Troponin I LESS THAN 0.02 NG/ML (0.02-0.05) Platelet Count 147 TH/MM3 (150-450) Random Glucose 114 MG/DL (74-106) Total Protein 6.3 GM/DL (6.4-8.2) Albumin 3.1 GM/DL (3.4-5.0) Imaging Current Medications Medications (Trade) Dose Ordered Sig/Hayden Route PRN Reason Start Time Stop Time Status Last Admin Dose Admin IV Flush (NS Flush) 2 ml UNSCH PRN FLUSH FLUSH AFTER USING IV ACCESS 01/30/17 19:45 IV Flush (NS Flush) 2 ml BID FLUSH 01/30/17 21:00 01/31/17 20:27 Naloxone HCl (Narcan Inj) 0.4 mg UNSCH PRN IV SEE LABEL COMMENTS 01/30/17 19:45 Aspirin (Ecotrin Ec) 81 mg DAILY PO 01/31/17 09:00 01/31/17 09:37 Atorvastatin Calcium (Lipitor) 10 mg DAILY PO 01/31/17 09:00 01/31/17 09:37 Metformin HCl (Glucophage) 1,000 mg BIDPC PO 01/31/17 09:00 01/31/17 18:36 Metoprolol Tartrate (Lopressor) 25 mg DAILY PO 01/31/17 09:00 01/31/17 09:37 Multivitamin Hematinic Therapeutic (Theragran Hematinic) 1 tab DAILY PO 01/31/17 09:00 01/31/17 09:37 Nitroglycerin (Nitrostat Sl) 0.4 mg STAT PRN SL CHEST PAIN 01/30/17 20:00 Thyroid ([place] Thyroid) 60 mg DAILY PO 01/31/17 09:00 01/31/17 09:37 Patient Own Medication PT OWN MED: RAPAFL... DAILY PO 01/31/17 09:00 Hold Dextrose (D50w (Vial) Inj) 25 ml UNSCH PRN IV PUSH HYPOGLYCEMIA-SEE COMMENTS 01/31/17 16:15 Glucagon (Glucagon Inj) 1 mg UNSCH PRN OTHER HYPOGLYCEMIA-SEE COMMENTS 01/31/17 16:15 Isosorbide Mononitrate (Imdur) 30 mg DAILY@07 PO 02/01/17 07:00 02/01/17 06:13 PE at Discharge GENERAL: SKIN: Warm and dry. HEAD: Atraumatic. Normocephalic. EYES: Pupils equal and round. No scleral icterus. No injection or drainage. ENT: No nasal bleeding or discharge. Mucous membranes pink and moist. NECK: Trachea midline. No JVD. CARDIOVASCULAR: Regular rate and rhythm. RESPIRATORY: No accessory muscle use. Clear to auscultation. Breath sounds equal bilaterally. GASTROINTESTINAL: Abdomen soft, non-tender, nondistended. Hepatic and splenic margins not palpable.obese MUSCULOSKELETAL: Extremities without clubbing, cyanosis, or edema. No obvious deformities. NEUROLOGICAL: Awake and alert. No obvious cranial nerve deficits. Motor grossly within normal limits. Five out of 5 muscle strength in the arms and legs. Normal speech. PSYCHIATRIC: Appropriate mood and affect; insight and judgment normal. 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 Dr Shelley and is seen in coverage by cardiology here recomendations dc home on isosorbide [address] shelley as an op will continue current medical regeime recomend lifestyle changes to include weight loss and mild daily exercise to tolerance will fu with our office next week ck bp and ekg return to ED if chest pain returns Pt Condition on Discharge: Good Discharge Disposition: Discharge Home Discharge Instructions DIET: Follow Instructions for: Heart Healthy Diet, Diabetic Diet Activities you can perform: Regular-No Restrictions Activities to avoid: Strenuous Activity Basim Cao DO Feb 01, 2017 08:15
[2017-02-01] MEDS: THYROID 60 MG TAB PO SCH (08:50)
[2017-02-01] MEDS: ASPIRIN EC 81 MG TABEC PO SCH (08:50)
[2017-02-01] MEDS: MULTIVITAMIN HEMATINIC THERAPEUTIC TAB PO SCH (08:50)
[2017-02-01] MEDS: metFORMIN HCL 500 MG TAB PO SCH (08:51)
[2017-02-01] MEDS: ATORVASTATIN 10 MG TAB PO SCH (08:51)
[2017-02-01] MEDS: METOPROLOL TARTRATE 25 MG TAB PO SCH (08:52)
== END 2017-02-01 11:24 | disposition home or self-care (01) | DRG 313 ==
LOC: NEPC 13:52 → NEDA 18:31 → OBSVTOIN 19:47 → NEDH 01-31 00:59 → NEPFCDU 01-31 03:47
PROVIDERS: ADMIT Family Medicine; ATTEND Family Medicine
DX: R07.89 Other chest pain (principal); I25.2 Old myocardial infarction; J44.9 Chronic obstructive pulmonary disease, unspecified; E11.9 Type 2 diabetes mellitus without complications; E53.8 Deficiency of other specified B group vitamins; I25.10 Atherosclerotic heart disease of native coronary artery without angina pectoris; F17.210 Nicotine dependence, cigarettes, uncomplicated; G47.33 Obstructive sleep apnea (adult) (pediatric); J45.909 Unspecified asthma, uncomplicated; M25.512 Pain in left shoulder; E03.9 Hypothyroidism, unspecified; E78.5 Hyperlipidemia, unspecified; I10 Essential (primary) hypertension; Z85.810 Personal history of malignant neoplasm of tongue; Z95.0 Presence of cardiac pacemaker; Z85.820 Personal history of malignant melanoma of skin; Z79.84 Long term (current) use of oral hypoglycemic drugs
CPT/HCPCS: 71010; 80048; 80053; 82550; 82552; 82948; 83735; 84439; 84443; 84480; 84484; 85025; 85610; 85730; 93005

== ENCOUNTER 2018-03-09 07:13 | Day surgery (SDC) | payer MEDICARE, BC ==
[~2018-03-09] VITALS: Ht 172.7 cm; Wt 116.8 kg
[~2018-03-09 07:13] MED LIST changes: +ISOS30TA3 PO
[2018-03-09] MEDS ORDERED: IOHEXOL 350 MG/ML 100 ML BTL (for Cath Lab) OTHER ONE (07:14)
[2018-03-09] MEDS ORDERED: HEPARIN-NS/PF FLUSH BAG 2,000 ML IV FLUSH ONE (08:06)
[2018-03-09] MEDS ORDERED: VERAPAMIL HCL 5 MG/2 ML VIAL ONE ×2 (08:06→08:41)
[2018-03-09] MEDS ORDERED: HEPARIN SODIUM - IV 10,000 UNITS/10 ML VIAL ONE ×3 (08:07→09:12)
[2018-03-09] MEDS ORDERED: NITROGLYCERIN INJ 5 ML ONE (08:07)
[2018-03-09 08:13] VITALS: BP 122/70; PULSE 64; RESP 18; TEMP 97.6; O2SAT 93
[2018-03-09] MEDS ORDERED: ASPI81CH6 CHEW (08:25)
[2018-03-09] MEDS ORDERED: IBUP1TAB7 PO (08:25)
[2018-03-09 08:40] LABS: AUTOMATED NEUTROPHIL # 5.5 TH/MM3 (1.8-7.7); BASOPHIL # 0.1 TH/MM3 (0-0.2); BASOPHIL % 0.9 % (0.0-2.0); EOSINOPHIL # 0.2 TH/MM3 (0-0.4); EOSINOPHIL % 2.3 % (0.0-4.0); HEMATOCRIT 42.9 % (39.0-51.0); HEMOGLOBIN 14.7 GM/DL (13.0-17.0); LYMPH % 26.9 % (9.0-44.0); LYMPHOCYTE # 2.4 TH/MM3 (1.0-4.8); MEAN CELL VOLUME 97.5 FL (80.0-100.0); MEAN CORPUSCULAR HEMOGLOBIN 33.4 PG (27.0-34.0); MEAN CORPUSCULAR HGB CONC 34.3 % (32.0-36.0); MEAN PLATELET VOLUME 8.4 FL (7.0-11.0); MONOCYTE # 0.8 TH/MM3 (0-0.9); NEUT % 60.9 % (16.0-70.0); PLATELET COUNT 150 TH/MM3 (150-450); RED CELL DISTRIBUTION WIDTH 14.1 % (11.6-17.2); WHITE BLOOD COUNT 9.1 TH/MM3 (4.0-11.0)
[2018-03-09] MEDS ORDERED: LIDOCAINE HCL 1% PF 30 ML VIAL ONE (08:41)
[2018-03-09 08:49] LABS: INTERNATIONAL NORMALIZED RATIO 1.1 RATIO; PROTHROMBIN TIME - PATIENT 11.2 SEC (9.8-11.6)
[2018-03-09] MEDS ORDERED: MIDAZOLAM HCL 2 MG/2 ML VIAL ONE (08:51)
[2018-03-09 08:56] LABS: BICARBONATE 26.9 MEQ/L (21.0-32.0); CALCIUM 9.3 MG/DL (8.5-10.1); CREATININE 0.99 MG/DL (0.60-1.30)
[2018-03-09] MEDS ORDERED: CANGRELOR TETRASODIUM 50,000 MCG VIAL ONE (09:12)
[2018-03-09] MEDS ORDERED: STERILE WATER FOR INJECTION 10 ML VIAL ONE (09:15)
[2018-03-09] MEDS ORDERED: MORPHINE SULFATE 10 MG/ML INJ ONE (09:57)
[2018-03-09] MEDS ORDERED: TICAGRELOR 90 MG TAB PO ONE (10:14)
--- NOTE | 2018-03-09 10:25 | CATHPROC ---
[employer] HIS Report Study Information Study Number Admission Scheduled Start Study Start [id number] Mar 09 2018 7:13AM 03/09/2018 Mar 09 2018 8:04AM [facility] Cardiac Catheterization Admit Source Facility Department Other [facility] Physician and Clinical Staff Initial Rubio Camacho Mortgage Loan CloserHarinder Foote,DILLON Mortgage Loan Closer Quiana Hazel,DILLON Recorder Jessica Connor,RT(R) (BS) Scrub Angela BaxterRT(R) Procedures Performed Procedure Location (Site) Vessel Name Coronary Angiograms LCA Left Coronary Coronary Angiograms RCA Right Coronary Drug Eluting Inflatio RCA Mid Right Coronary IVUS Radial (right) Radial Art. PTCA RCA Mid Right Coronary PTCA ADD ON'S Wire insertion Radial (right) Radial Art. Equipment Time Access Control Specialist Description Size Mfg Part Number Used/Scraped [id number] 09:24 [employer] WIRE, ASAHI GRANDSLAM 180CM 180CM Used *[id number] WIRE, BALANCE MIDDLEWEIGHT [id number] 09:14 [employer] 190CM Used 190CM *[id number] TRANSDUCER, TRUWAVE [id number] 08:05 PAN JUSTIN * Used W/STOCKCOCK *[id number] [phone] *[id number] PIGTAIL ANG. 145 INFINITI [phone] CATHETER *[id number] [id number] *[id number] 08:05 MALLINCKRODT SYRINGE, ANGIOMAT 150ML 150ML *[id number] Used 2SUB [id number] 08:05 [employer] INDUSTRIES PACK, CCL CUSTOM * Used *[id number] 08:05 [employer] SUPPORT, ARTERIAL ADULT [id number] *[id number] Used [id number] 08:05 [employer] PACER PEN, SKIN DUAL W/ RULER * Used *[id number] 09:28 MEDTRONIC BALLOON, 3.0 X 20MM EUPHORA 20MM Used *[id number] 09:37 MEDTRONIC STENT, 3.0 22MM OLE 3.0 22MM Used *[id number] [id number] 09:41 MEDTRONIC STENT, 4.0 18MM OLE 4.0 18MM Used *[id number] 09:13 [employer] 30 ALCON INDEFLATOR Used *9859149 BAND, RADIAL COMPRESSION TR [id number] 10:03 [employer] MEDICAL 29CM Used LARGE 29 *[id number] [id number] 09:57 MER[employer] WIRE, EXCHANGE 260CM 3MMJ 260CM Used *[id number] [id number] 08:05 [employer] MEDICAL WIRE, EXCHANGE 260CM 3MMJ 260CM Used *[id number] 08:05 NAMIC MANIFOLD, 4 PORT * Used *[id number] 09:56 NAMIC TUBING, HIGH PRESSURE 20" 20" Used *9896177 08:05 NYCOMED OMNIPAQUE, 350 MG, 100ML 100ML [id number] Used [id number] 08:05 [email or web address] BLANKET,WARM AIR CCL * Used *[id number] 08:05 [email or web address] JELCO NEEDLE 4056 *3250452 Used CATHETER, FR5 OPTITORQUE [id number] 08:56 [employer]yx FR 5 Used RADIAL TIG 4.0 *[id number] SHEATH, FR6 TRANSRADIAL [id number] 08:05 TERRegBinder FR 6 Used SLENDER 10CM *[id number] CATHETER, TABLE [employer] [place] [id number] 09:48 VOLCANO Used IMAGING *[id number] Equipment Model, Serial, Lot Number and Expiration Data Description Model Number Serial Number Lot Number Expiration Date BALLOON, 3.0 X 20MM EUPHORA [id number] 12-01-2019 CATHETER, TABLE [employer] [id number] 12-24-2019 IMAGING STENT, 3.0 22MM OLE [id number] 11-25-2019 STENT, 4.0 18MM OLE [id number] 10-14-2019 WIRE, EXCHANGE 260CM 3MMJ [id number] 01-21-2021 History: Current Medications Medication Dosage/Unit Route Frequency Last Date/Time Taken ASA Beta Hermilo NTG SL History: Allergies Allergy Reaction tamsulosin Edema History: Risk Factors Family History of Hypertension Dyslipidemia Previous SD Previous Heart Failure Premature CAD Yes Yes Yes No No Prior Valve Prior PCI Prior CABG Surgery No No No Cerebrovascular Peripheral Artery Chronic Lung On Dialysis Diabetes Diabetes Therapy Disease Disease Disease No No No Yes Yes Oral History: Stress Tests Stress or Imaging Studies Performed Yes Standard Exercise Stress Test No Stress Echo No Stress Test SPECT Stress Test SPECT Result Stress Test SPECT Ischemia Risk/Extent Yes Positive Intermediate Stress Test CMR No Cardiac CTA Coronary Calcium Score No No History: Other Current Smoker Method Yes Cigarettes Labs Hgb (g/dl) Hct (%) RBC (MIL/MM3) WBC (l/cumm) Platelets (thousands) 11.60-17.00 35.00-51.00 4.00-5.90 4.00-11.00 150.00-450.00 14.7 42.9 4.4 9.1 150 Glucose (mg/dl) BUN (mg/dl) Creatinine (mg/dl) BUN:Creatinine (1:x) 74.00-106.00 7.00-18.00 0.50-1.30 10.00-20.00 165 12 0.9 13.3 Na (meq/l) K (meq/l) Cl (meq/l) CO2 (mmol/L) Ca (mg/dl) 136.00-145.00 3.50-5.10 98.00-107.00 21.00-32.00 8.50-10.10 139 4.7 106 26.9 9.3 PT (sec) INR (PTT:PT) 9.80-11.60 0.90-1.10 11.2 1.1 CPK-MB (ng/ML) 0.50-3.60 Not Drawn Medication Medication Total Dose (Bolus/Oral) Medication Total Dosage/Unit 1% XYLOCAINE 1 mL BRILINTA 180 mg HEPARIN 5000 units MORPHINE 6 mg NTG (IC) 400 mcg RADIAL COCKTAIL 2 units VERSED 2 mg Medications (Bolus/Oral) Medication Time Given Dosage/Unit Administered By Reason VERSED 03/09/2018 8:54:27 AM 1 mg Harinder Alvarez 1 mg VERSED given in lab by Harinder Alvarez, RN in Right Antecubital via Peripheral IV. 1% XYLOCAINE 03/09/2018 8:56:12 AM 1 mL Rubio Joyce 1 mL 1% XYLOCAINE given in lab by Rubio Joyce in Right Radial via Subcutaneous. Ntg 200mcg Verapamil 2.5mg Heparin RADIAL COCKTAIL 03/09/2018 8:58:15 AM 1 units Rubio Joyce 2500U 1 units RADIAL COCKTAIL given in lab by Rubio Joyce in Right Radial via Radial. Reason: Ntg 200mcg Verapamil 2.5mg Heparin 2500U. VERSED 03/09/2018 9:00:17 AM 1 mg Quiana Hazel 1 mg VERSED given in lab by Quiana Hazel RN in Right Antecubital via Peripheral IV. HEPARIN 03/09/2018 9:17:04 AM 5000 units Quiana Hazel 5000 units HEPARIN given in lab by Quiana Hazel RN in Right Antecubital via Peripheral IV. NTG (IC) 03/09/2018 9:34:02 AM 150 mcg Rubio Joyce 150 mcg NTG (IC) given in lab by Rubio Joyce in Right Radial via Intra-coronary. NTG (IC) 03/09/2018 9:44:45 AM 150 mcg Rubio Joyce 150 mcg NTG (IC) given in lab by Rubio Joyce in Right Radial via Intra-coronary. NTG (IC) 03/09/2018 9:47:03 AM 100 mcg Rubio Joyce 100 mcg NTG (IC) given in lab by Rubio Joyce in Right Radial via Intra-coronary. Ntg 200mcg Verapamil 2.5mg Heparin RADIAL COCKTAIL 03/09/2018 10:01:00 AM 1 units Rubio Joyce 3000U 1 units RADIAL COCKTAIL given in lab by Quiana Hazel RN via Radial. Reason: Ntg 200mcg Verapamil 2.5mg MORPHINE 03/09/2018 10:02:39 AM 3 mg Quiana Hazel 3 mg MORPHINE given in lab by Quiana Hazel RN in Right Antecubital via Peripheral IV. MORPHINE 03/09/2018 10:06:26 AM 3 mg Quiana Hazel 3 mg MORPHINE given in lab by Quiana Hazel RN in Right Antecubital via Peripheral IV. BRILINTA 03/09/2018 10:15:23 AM 180 mg Quiana Hazel 180 mg BRILINTA given in lab by Quiana Hazel RN via Oral. Medication (Drip) Medication Time Given Dosage/Unit Concentration/Unit Diluent (ml) Soluti on IV Solutions 03/09/2018 8:40:00 AM 0 mL (IV) 500 NaCl .9 IV Solutions given in lab by Harinder Alvarez RN in Right Antecubital via Peripheral IV. Pump/Drip Efrem w = 30 ml/hr using NaCl .9. KENGREAL BOLUS 03/09/2018 9:25:26 AM 17 mL 17 mL KENGREAL BOLUS given in lab by Quiana Hazel RN in Right Antecubital via Peripheral IV. KENGREAL DRIP 03/09/2018 9:26:50 AM 3.967 mcg/kg/min 50 mg 250 NaCl .9 3.967 mcg/kg/min KENGREAL DRIP given in lab by Quiana Hazel, RN in Right Antecubital via Periphera l IV. Pump/Drip Flow = 139 ml/hr using NaCl .9 with a concentration of 50 mg in 250 ml. Initial Case Assessment Cardiovascular HR Rhythm NIBP Chest Pain 64 reg 119/74 0 Edema Present Skin color Skin None Normal Warm Dry Circulatory - Right Pulses Dorsalis Pedis Femoral Radial 2 2 2 Scale (0,1,2,3,4,d) Circulatory - Left Pulses Dorsalis Pedis Femoral Radial 2 2 Scale (0,1,2,3,4,d) Circulatory - Lower Extremities Color Lower Right Color Lower Left Normal Normal Neurological State Oriented to time-place- Alert Moves all extremities person Respiration - General Respiration Rate SpO2 (%) O2 (lpm) (B/min) 16 96 2 Chronological Log Time Study Chronological Log 8:34:26 Patient arrived via Bed. 8:34:31 Patient Name, D.O.B, / Armband Verified By R.N. 8:39:33 Consent signed by the physician and the patient and verified by the [facility] staff. 8:39:34 Pre-op and post- op instructions given; patient acknowledges understanding of instructions. 8:39:34 Verbal Stimulation=2 Physical Stimulation=2 Airway=2 Respiration=2 TOTAL=8. (0=absent, 1=li mited, 2=present) 8:39:43 Presedation assessment performed by [facility] RN. 8:39:46 Allens test performed on the right radial and ulnar artery. 8:39:53 Patient has been NPO for More than 6Hrs. 8:39:55 Skin Breakdown dry patches on arms 8:39:57 Patient Warmer Placed on the Table. 8:39:59 Henrry Prominences Protected 8:40:00 A # 20 IV was noted in the Antecubital (right). Grade = 0 IV Solutions given in lab by Harinder Alvarez, RN in Right Antecubital via Peripheral IV. Pump/Dr ip Flow = 30 ml/hr using 8:40:00 NaCl .9. 8:40:01 History and physical on the chart or being dictated. Assessment: Initial Case, HR=64 BPM, Rhythm=reg, OCKJ=499/74 mmhg, Chest Pain=0, Edema=None, Col or=Normal, Skin = Warm, Dry Right Pulses: Wes Ped=2, Femoral=2, Radial=2 Left Pulses: Wes Ped=2, Femoral=2 8:40:01 Lower Right Extremities: Color=Normal Lower Left Extremities: Color=Normal Neurological: State=Alert, Ox3, REA Respiration: Resp=16 B/min, SpO2=96 %, O2=2 lpm Vitals capture started with the following parameters, Patient=Adult, Interval=5 min, Initial Pre tgbid=490 mmHg, 8:44:30 Deflation Rate=5 mmHg, Cuff placed on Unknown 8:45:12 HR=70 bpm, QQEW=366/74 mmhg, Resp=15 B/min, Pain=0, Rolo=10, Otero=2 8:48:40 Right Radial and groin(s) prepped with 2% chlorhexidine, and draped after a 3 min. waiting t vi. 8:50:11 HR=74 bpm, XPDX=455/72 mmhg, SpO2=95.0 %, Resp=26 B/min, Pain=0, Rolo=10, Otero=2 8:51:21 Reference ECG taken 8:54:27 1 mg VERSED given in lab by Harinder Alvarez, RN in Right Antecubital via Peripheral IV. Time Out. Correct patient, correct procedure, correct physician, power injector not loaded with contrast with surgical 8:54:50 team present. Time Out Concurred by MD and individual staff in procedure. 8:54:56 Case Start 8:55:14 HR=62 bpm, FDNK=231/58 mmhg, SpO2=95.0 %, Resp=27 B/min, Pain=0, Rolo=10, Otero=2 8:56:12 1 mL 1% XYLOCAINE given in lab by Rubio Joyce in Right Radial via Subcutaneous. 8:57:20 Pressure channel 1 zeroed. 8:57:23 Access site was right Radial Artery. A SHEATH, FR6 TRANSRADIAL SLENDER 10CM FR 6 was advanced into the Radial (right) using the Mago giraldo 8:57:34 technique. 1 units RADIAL COCKTAIL given in lab by Rubio Joyce in Right Radial via Radial. Reason: Ntg 20 0mcg Verapamil 8:58:15 2.5mg Heparin 2500U. A CATHETER, FR5 OPTITORQUE RADIAL TIG 4.0 FR 5 was advanced over a wire. OMNIPAQUE, 350 MG, 100M L 100ML 8:59:57 was used for injections. 9:00:09 HR=73 bpm, NIBP=90/51 mmhg, SpO2=94.0 %, Resp=21 B/min, Pain=0, Rolo=10, Otero=2 9:00:17 1 mg VERSED given in lab by Quiana Hazel, RN in Right Antecubital via Peripheral IV. Recorded Pressure: Ao, HR=67, Condition=Condition 1 9:01:49 (Aorta) Ao 87/53/68 9:03:18 The LCA was injected and visualized at various angles. OMNIPAQUE, 350 MG, 100ML 100ML used. 9:05:08 HR=70 bpm, HKKO=791/54 mmhg, SpO2=93.0 %, Resp=21 B/min, Pain=0, Rolo=10, Otero=2 9:07:37 The RCA was injected and visualized at various angles. OMNIPAQUE, 350 MG, 100ML 100ML used. 9:10:11 HR=73 bpm, TLLL=335/64 mmhg, SpO2=95.0 %, Resp=23 B/min, Pain=0, Rolo=10, Otero=2 9:12:50 OMNIPAQUE, 350 MG, 100ML 100ML and 30 ALCON INDEFLATOR added. 9:15:12 HR=72 bpm, TZOC=064/60 mmhg, SpO2=96.0 %, Resp=15 B/min, Pain=0, Rolo=10, Otero=2 9:17:04 5000 units HEPARIN given in lab by Quiana Hazel, RN in Right Antecubital via Peripheral I V. After removing the current catheter a JR 4.0 GUIDE CATHETER FR 6 was advanced over a WIRE, EXCHA NGE 260CM 9:17:17 3MMJ 260CM. 9:20:11 A WIRE, BALANCE MIDDLEWEIGHT 190CM 190CM was inserted via Radial (right). 9:20:13 HR=74 bpm, HUIH=884/59 mmhg, SpO2=95.0 %, Resp=20 B/min, Pain=0, Rolo=10, Otero=2 9:23:58 A WIRE, ASAHI GRANDSLAM 180CM 180CM was inserted via Radial (right). 9:25:09 Wire removed BMW 9:25:10 HR=70 bpm, YOGA=592/67 mmhg, SpO2=96.0 %, Resp=16 B/min, Pain=0, Rolo=10, Otero=2 9:25:26 17 mL KENGREAL BOLUS given in lab by Quiana Hazel, RN in Right Antecubital via Peripheral IV. 9:25:57 Interventional wire has crossed the lesion 3.967 mcg/kg/min KENGREAL DRIP given in lab by Quiana Hazel, DILLON in Right Antecubital via Per ipheral IV. 9:26:50 Pump/Drip Flow = 139 ml/hr using NaCl .9 with a concentration of 50 mg in 250 ml. 9:26:56 DOCU called. Spoke to Leandra. Advised patient will need a bed. 9:27:23 Activated Clotting Time Drawn A BALLOON, 3.0 X 20MM EUPHORA 20MM was inserted over WIRE, ASAHI GRANDSLAM 180CM 180CM via the Radial 9:28:27 (right). A BALLOON, 3.0 X 20MM EUPHORA 20MM over a WIRE, ASAHI GRANDSLAM 180CM 180CM in the RCA Mid was inflated 9:29:46 using a 30 ALCON INDEFLATOR at 14 alcon for 48 sec. 9:30:13 HR=69 bpm, JSAP=307/58 mmhg, SpO2=97.0 %, Resp=25 B/min, Pain=0, Rolo=10, Otero=2 A BALLOON, 3.0 X 20MM EUPHORA 20MM over a WIRE, ASAHI GRANDSLAM 180CM 180CM in the RCA Mid was inflated 9:30:59 using a 30 ALCON INDEFLATOR at 12 alcon for 30 sec. A BALLOON, 3.0 X 20MM EUPHORA 20MM over a WIRE, ASAHI GRANDSLAM 180CM 180CM in the RCA Mid was inflated 9:32:17 using a 30 ALCON INDEFLATOR at 14 alcon for 30 sec. 9:34:02 150 mcg NTG (IC) given in lab by Rubio Joyce in Right Radial via Intra-coronary. 9:34:52 ACT (Normal Range 90-180) = 437 9:35:04 Balloon Removed 9:35:10 HM=753 bpm, JKKL=728/64 mmhg, Resp=11 B/min, Pain=0, Rolo=10, Otero=2 A STENT, 3.0 22MM OLE 3.0 22MM was advanced through a JR 4.0 GUIDE CATHETER FR 6 over a WIRE, ASANM 9:36:05 GRANDSLAM 180CM 180CM. A STENT, 3.0 22MM OLE 3.0 22MM was deployed using a 30 ALCON INDEFLATOR at 13 atmospheres for 20 seconds in 9:37:28 the RCA Mid. A STENT, 3.0 22MM OLE 3.0 22MM was deployed using a 30 ALCON INDEFLATOR at 18 atmospheres for 14 seconds in 9:38:27 the RCA Mid. 9:38:51 Delivery device removed 9:40:13 HR=60 bpm, DAEV=864/60 mmhg, SpO2=96.0 %, Resp=11 B/min, Pain=0, Rolo=10, Otero=2 A STENT, 4.0 18MM OLE 4.0 18MM was advanced through a JR 4.0 GUIDE CATHETER FR 6 over a WIRE, ASANM 9:40:44 GRANDSLAM 180CM 180CM. A STENT, 4.0 18MM OLE 4.0 18MM was deployed using a 30 ALCON INDEFLATOR at 18 atmospheres for 27 seconds in 9:42:28 the RCA Mid. A STENT, 4.0 18MM OLE 4.0 18MM was deployed using a 30 ALCON INDEFLATOR at 18 atmospheres for 11 seconds in 9:43:14 the RCA Mid. 9:43:59 Delivery device removed 9:44:45 150 mcg NTG (IC) given in lab by Rubio Joyce in Right Radial via Intra-coronary. 9:45:14 HR=68 bpm, NIBP=99/50 mmhg, SpO2=96.0 %, Pain=0, Rolo=10, Otero=2 9:47:03 100 mcg NTG (IC) given in lab by Rubio Joyce in Right Radial via Intra-coronary. 9:48:12 An CATHETER, TABLE [employer] IMAGING was advanced through the lesion. Images saved onto IVUS hard drive 9:50:11 SRXG=065/63 mmhg, SpO2=95.0 %, Pain=0, Rolo=10, Otero=2 9:50:48 IVUS in progress using CATHETER, TABLE [employer] IMAGING 9:55:12 HR=76 bpm, YOUR=413/65 mmhg, Resp=21 B/min, Pain=0, Rolo=10, Otero=2 9:55:20 IVUS catheter removed After removing the current catheter a PIGTAIL ANG. 145 INFINITI CATHETER FR 6 was advanced over a WIRE, 9:55:52 EXCHANGE 260CM 3MMJ 260CM. After removing the current catheter a PIGTAIL ANG. INFINITI CATHETER FR 5 was advanced over a W SAW, EXCHANGE 9:56:59 260CM 3MMJ 260CM. 10:00:13 HR=65 bpm, PIHS=865/69 mmhg, SpO2=96.0 %, Resp=24 B/min, Pain=0, Rolo=10, Otero=2 10:01:00 1 units RADIAL COCKTAIL given in lab by Quiana Hazel, DILLON via Radial. Reason: Ntg 200mcg Verapamil 2.5mg 10:02:06 Catheter was removed 10:02:29 Case End 10:02:39 3 mg MORPHINE given in lab by Quiana Hazel, DILLON in Right Antecubital via Peripheral IV. 10:02:59 DOCU called. Spoke to Leandra. 10:03:38 Catheter(s) removed without difficulty 10:03:43 No case complications noted. 10:03:52 Activated Clotting Time Drawn 10:04:23 Holding Area notified of successful intervention. 10:04:24 Bedside Report will be given. 10:04:25 Implantable Device card placed in patient's chart. 10:05:12 HR=73 bpm, EESM=006/58 mmhg, SpO2=94.0 %, Resp=19 B/min, Pain=0, Rolo=10, Otero=2 10:06:26 3 mg MORPHINE given in lab by Quiana Hazel, RN in Right Antecubital via Peripheral IV. Radial Compression Device Used. 13 mLs of air placed in BAND, RADIAL COMPRESSION TR LARGE 29 2 9CM. Affected 10:08:01 hand 97 % O2 saturation. 10:09:00 ACT (Normal Range 90-180) = 179 10:10:13 FG=542 bpm, IPHJ=839/56 mmhg, SpO2=97.0 %, Pain=0, Rolo=10, Otero=2 10:15:12 SDWP=415/64 mmhg, Pain=0, Rolo=10, Otero=2 10:15:23 180 mg BRILINTA given in lab by Quiana Hazel RN via Oral. 10:16:36 Patient moved to stretcher 10:20:03 Vitals capture stopped. End Study - Contrast Media Used In Study Contrast Total Opened (mL) Total Used (mL) Total Wasted (mL) Omnipaque 180 180 0 End Study - Maximum Contrast Load Max Contrast Load (mL) 649.0 End Study - Radiation Exposure Fluoro Time (minutes) 20.1 End Study - Sheaths Sheaths Pulled By Sheath Hold Time (min) Angela Baxter End Study - Patient Disposition Complications Transferred To Interventional Outcome No [facility] Holding successful
[2018-03-09] MEDS ORDERED: ACETAMINOPHEN 325 MG TAB PO PRN (10:30)
[2018-03-09] MEDS ORDERED: SODIUM CHLORIDE 0.9% FLUSH 10 ML FLUSH IV FLUSH PRN (10:30)
[2018-03-09] MEDS ORDERED: oxyCODONE/ACETAMINOPHEN 5 MG/325 MG TAB PO PRN (10:30)
[2018-03-09] MEDS ORDERED: ONDANSETRON HCL 4 MG/2 ML VIAL IVP PRN (10:30)
[2018-03-09] MEDS ORDERED: CANGRELOR INJ 50,000 MCG in SODIUM CHLOR 0.9% 250 ML INJ 250 ML IV ONE (10:30)
[2018-03-09] MEDS ORDERED: oxyCODONE/ACETAMINOPHEN 10 MG/325 MG TAB PO PRN (10:30)
--- NOTE | 2018-03-09 10:46 | MA ---
cc: Rubio Joyce MD,Jac Cao,Basim Hyde DO DATE: 03/09/2018 BRIEF HISTORY: Tom Calderón is an 82-year-old man who continued to smoke, who has been having anginal symptoms. Nuclear stress test showed intermediate risk moderate inferior ischemia. He has continued to have class III angina despite beta cristy and Imdur therapy. PROCEDURES PERFORMED: 1. Coronary angiography. 2. Balloon angioplasty and stenting of the distal right coronary artery, two overlapping drug-eluting stents required. 3. Intravascular ultrasound. DESCRIPTION OF PROCEDURE: The patient was brought to the cardiac catheterization lab in a fasting state. Using 1% lidocaine for local anesthesia, a Terumo Slender Sheath was easily inserted into the right radial artery. Coronary angiography was then performed using a [place] catheter. I decided to perform intervention on the right calf. The catheter was exchanged for a wire to a JR4. The right coronary artery was difficult to wire; I could not get a BMW to cross. With some finessing I was able to get a [place] wire across the distal right coronary artery lesion. It was predilated with a 3 mm balloon at multiple segments. I then started with a 3.0 x 22 mm Max stent starting just before the crux. I then overlapped a 4.0 x 18 mm [place] stent more proximally, I inflated the overlap of the stents with the same balloon. I went to high pressure throughout this segment of at least 18 atmospheres. Angiography demonstrated a good result. There was some haziness distal to the stent near where the posterior descending artery branch comes off. Intravascular ultrasound was performed. There is a long zone of plaque nonocclusive distal to my stent that I opted not to stent to avoid jailing the PDA branch. There was hoahaoism of MEET 3 flow. The procedure was performed on heparin and Kengreal. The patient was loaded with Brilinta at the end of the case. We will continue Kengreal for 2 hours. FINDINGS: I. HEMODYNAMICS: Aortic pressure was about in the 90s during most of the case. II. CORONARY ANGIOGRAPHY: Left main coronary artery appears normal. It bifurcates into the LAD and circumflex vessels. LAD has a complex proximal bifurcation before the septal petroleum geologist branch. Between the first diagonal branch and first septal branch, the segment of the LAD there is about 3-4 mm long and this segment has 60-70% stenosis. The diagonal branch just past the origin of the LAD has a 90% very eccentric stenosis. Further out in the diagonal branch on a bend is a 60% stenosis. The remainder of the LAD diagonal appears normal. Circumflex artery has only a 10% irregularity in the OM branch. The right coronary artery is subtotally occluded distally with only MEET 1 flow and left to right collaterals. III. RESULTS OF INTERVENTION: Following drug-eluting stent implantation of the distal right coronary artery, a 0% residual stenosis has been achieved with hoahaoism of MEET 3 flow. CONCLUSIONS: 1. Complex two-vessel coronary artery disease. 2. Successful stenting of a subtotally occluded distal right coronary artery. I would like to see how the patient does after this. He may need further stenting or bypass surgery for his LAD disease. MD REBECCA Jimenez/ERLIN , 10:17 AM , 10:46 AM
[2018-03-09] MEDS ORDERED: SODIUM CHLOR 0.9% 1000 ML INJ 1,000 ML IV SCH (14:00)
[2018-03-09] MEDS ORDERED: SODIUM CHLORIDE 0.9% FLUSH 10 ML FLUSH IV FLUSH SCH (21:00)
[2018-03-09] MEDS ORDERED: TICAGRELOR 90 MG TAB PO SCH (21:00)
[2018-03-10] MEDS ORDERED: ASPIRIN 81 MG CHEW TAB PO SCH (09:00)
== END 2018-03-09 16:15 | disposition home or self-care (01) ==
LOC: HDOC 07:13 → HDIC 07:14 → HDOC 16:15
PROVIDERS: ATTEND Internal Medicine Cardiovascular Disease
DX: I25.119 Atherosclerotic heart disease of native coronary artery with unspecified angina pectoris (principal); I47.2 Ventricular tachycardia; I44.2 Atrioventricular block, complete; G47.30 Sleep apnea, unspecified; E11.9 Type 2 diabetes mellitus without complications; E66.9 Obesity, unspecified; J44.9 Chronic obstructive pulmonary disease, unspecified; R55 Syncope and collapse; Z95.0 Presence of cardiac pacemaker
CPT/HCPCS: 80048; 85002; 85025; 85610; 85730; 92928; 92978; 93454; 99152; 99153; C1725; C1753; C1769; C1874; C1887; C1893; C9460; J1644; J2250; J2270; J3010; Q9967